=== PATIENT | male | born 1985 ===

== ENCOUNTER 2018-10-06 09:04 | Emergency (ER) | payer MEDICAID ==
[2018-10-06 09:25] VITALS: TEMP 98.5
[2018-10-06 10:12] LABS: BASO # 0.02 K/mm3 (0.0-2.0); BASO % 0.4 % (0.0-3.0); EOS # 0.1 (0.0-0.7); EOS % 1.7 % (1.5-5.0); HEMOGLOBIN 15.5 g/dL (14.0-18.0); LYMPH # 1.5 (1.2-3.4); LYMPH % 31.9 % (22.0-35.0); MEAN CELL VOLUME 82.9 fl (80.0-105.0); MEAN CORPUSCULAR HEMOGLOBIN 29.8 pg (25.0-35.0); MEAN CORPUSCULAR HGB CONC 35.9 g/dl (31.0-37.0); MEAN PLATELET VOLUME 10.5 fl (7.0-11.0); MONO # 0.2 (0.1-0.6); MONO % 4.8 % (1.0-6.0); RBC 5.21 10^6/uL (3.5-6.1); RED CELL DISTRIBUTION WIDTH 12.3 % (11.5-14.5); WHITE BLOOD COUNT 4.8 10^3/uL (4.5-11.0)
[2018-10-06 10:21] LABS: ALB/GLOB RATIO 1.4 (1.1-1.8); ALBUMIN 4.4 g/dL (3.0-4.8); ALT/SGPT 20 U/L (7-56); AST/SGOT 22 U/L (17-59); BLOOD UREA NITROGEN 15 mg/dL (7-21); CALCIUM 9.7 mg/dL (8.4-10.5); GFR NON-AFRICAN AMERICAN > 60; INR 1.19; LIPASE 142 U/L (23-300); PROTHROMBIN TIME 13.4 SECONDS (9.4-12.5)
--- NOTE | 2018-10-06 10:35 | ED PDOC ---
Arrival/HPI - General Chief Complaint: Abdominal Pain Time Seen by Provider: 10/06/18 09:09 Historian: Patient - History of Present Illness Narrative History of Present Illness (Text): 10/06/18 10:31 33yo male with past medical history of hypertension who present with 2weeks history of RUQ abdominal pain that radiates to the back. Notes history of similar pain 2years ago that resolved after negative test by his PMD. states the pain was worse last night. Describes it as sharp and constant. No relieving/exacerbating factors. +Nausea. Reports one episode of diarrhea this morning. Denies vomiting, fever, chills, chest pain, hematuria, urinary symptoms, chest pain, sick contact, melena, hematemesis, any other complaint. Past Medical History - Provider Review Nursing Documentation Reviewed: Yes - Infectious Disease Hx of Infectious Diseases: None - Cardiac Hx Cardiac Disorders: Yes Hx Hypertension: Yes - Psychiatric Hx Substance Use: No - Anesthesia Hx Anesthesia: No Family/Social History - Physician Review Nursing Documentation Reviewed: Yes Family/Social History: Unknown Family HX Smoking Status: Unknown If Ever Smoked Hx Alcohol Use: Yes Frequency of alcohol use: Socially Hx Substance Use: No Allergies/Home Meds Allergies/Adverse Reactions: Allergies No Known Allergies Allergy (Verified 10/06/18 09:25) Review of Systems - Physician Review All systems were reviewed & negative as marked: Yes - Review of Systems Constitutional: Normal Eyes: Normal ENT: Normal Respiratory: Normal Cardiovascular: Normal Gastrointestinal: Abdominal Pain, Diarrhea, Nausea. absent: Constipation, Vomiting, Hematochezia, Hematemesis Genitourinary Male: Normal Musculoskeletal: Normal Skin: Normal Neurological: Normal Endocrine: Normal Hemo/Lymphatic: Normal Psychiatric: Normal Physical Exam Vital Signs Reviewed: Yes Vital Signs Temp Pulse Resp BP Pulse Ox 10/06/18 09:20 98.5 F 98 H 20 142/87 98 Temperature: Afebrile Blood Pressure: Normal Pulse: Regular Respiratory Rate: Normal Appearance: Positive for: Well-Appearing, Non-Toxic, Comfortable Pain Distress: None Mental Status: Positive for: Alert and Oriented X 3 - Systems Exam Head: Present: Atraumatic, Normocephalic Pupils: Present: PERRL Extroacular Muscles: Present: EOMI Conjunctiva: Present: Normal Mouth: Present: Moist Mucous Membranes Neck: Present: Normal Range of Motion Respiratory/Chest: Present: Clear to Auscultation, Good Air Exchange. No: Respiratory Distress, Accessory Muscle Use Cardiovascular: Present: Regular Rate and Rhythm, Normal S1, S2. No: Murmurs Abdomen: Present: Tenderness (RUQ), Normal Bowel Sounds, Other (soft). No: Distention, Peritoneal Signs, Rebound, Guarding, McBurney's Point Tender, Rovsing's Sign Present Back: Present: Normal Inspection. No: CVA Tenderness Upper Extremity: Present: Normal Inspection. No: Cyanosis, Edema Lower Extremity: Present: Normal Inspection. No: Edema Neurological: Present: GCS=15, CN II-XII Intact, Speech Normal Skin: Present: Warm, Dry, Normal Color. No: Rashes Psychiatric: Present: Alert, Oriented x 3, Normal Insight, Normal Concentration Medical Decision Making ED Course and Treatment: 10/06/18 19:11 PT present to emergency department for stated history. He was not in any distress in emergency department . Labs Gallbladder/Renal US Labs was unremarkable Gallbladder/Renal US IMPRESSION: Unremarkable abdominal sonogram. Result was DW the pt and he was referred to his PMD/GI - Lab Interpretations Lab Results: PT 13.4 SECONDS (9.4-12.5) H 10/06/18 09:50 INR 1.19 10/06/18 09:50 APTT 32.0 Seconds (26.9-38.3) 10/06/18 09:50 Total Bilirubin 0.4 mg/dL (0.2-1.3) 10/06/18 09:50 AST 22 U/L (17-59) 10/06/18 09:50 ALT 20 U/L (7-56) 10/06/18 09:50 Alkaline Phosphatase 60 U/L (38-126) 10/06/18 09:50 Total Protein 7.6 g/dL (5.8-8.3) 10/06/18 09:50 Albumin 4.4 g/dL (3.0-4.8) 10/06/18 09:50 Globulin 3.3 gm/dL 10/06/18 09:50 Albumin/Globulin Ratio 1.4 (1.1-1.8) 10/06/18 09:50 Lipase 142 U/L (23-300) 10/06/18 09:50 - RAD Interpretation Radiology Orders: 10/06/18 09:35 GALLBLADDER & RENAL [US] Stat - Medication Orders Current Medication Orders: Discontinued Medications Famotidine (Pepcid) 20 mg IVP STAT STA Stop: 10/06/18 09:35 Last Admin: 10/06/18 09:44 Dose: 20 mg IVP Administration Document 10/06/18 09:44 EQ (Rec: 10/06/18 09:44 EQ [id number]) Charges for Administration # of IVP Administrations 1 Ondansetron HCl (Zofran Inj) 4 mg IVP STAT STA Stop: 10/06/18 09:35 Last Admin: 10/06/18 09:44 Dose: 4 mg IVP Administration Document 10/06/18 09:44 EQ (Rec: 10/06/18 09:44 EQ [id number]) Charges for Administration # of IVP Administrations 1 Disposition/Present on Arrival - Present on Arrival Any Indicators Present on Arrival: No History of DVT/PE: No History of Uncontrolled Diabetes: No Urinary Catheter: No History of Decub. Ulcer: No History Surgical Site Infection Following: None - Disposition Have Diagnosis and Disposition been Completed?: Yes Diagnosis: Abdominal pain Disposition: HOME/ ROUTINE Disposition Time: 12:35 Patient Plan: Discharge Condition: STABLE Discharge Instructions (ExitCare): Acute Abdomen (Belly Pain) Additional Instructions: Follow up with your doctor/GI Return to emergency department for any new or worsening symptoms Prescriptions: Famotidine [Pepcid] 40 mg PO DAILY #10 tab Referrals: Luis Soto MD [Staff Provider] - Follow up with primary Forms: [employer] ([place])
--- NOTE | 2018-10-06 12:28 | US ---
Date of service: 10/06/2018 HISTORY: RUQ pain COMPARISON: None. TECHNIQUE: Sonographic evaluation of the abdomen. FINDINGS: LIVER: Measures 16.4 cm. Normal echogenicity of the liver parenchyma. No mass. No intrahepatic bile duct dilatation. GALLBLADDER: Unremarkable. No gallstones. COMMON BILE DUCT: Measures 3.8 mm. No stones. No dilatation. PANCREAS: Unremarkable as visualized. No mass. No ductal dilatation. RIGHT KIDNEY: Measures 11.5 x 4.5 x 6.5cm. Normal echogenicity. No calculus, mass, or hydronephrosis. LEFT KIDNEY: Measures 12.1 x 5.8 x 8.1cm. Normal echogenicity. No calculus, mass, or hydronephrosis. SPLEEN: Normal in size and contour. No mass. 13.6 x 4.6 x 5.0 AORTA: No aneurysmal dilatation. IVC: Unremarkable. OTHER FINDINGS: None. IMPRESSION: Unremarkable abdominal sonogram.
[2018-10-06 12:51] VITALS: BP 135/80; PULSE 85; RESP 19; O2SAT 99
== END 2018-10-06 13:03 | disposition home or self-care (01) ==
LOC: ED 09:04
DX: R10.11 Right upper quadrant pain (principal)
CPT/HCPCS: 76705; 76770; 80053; 83690; 83735; 85025; 85610; 85730; 96374; 96375; 99283; J2405